=== PATIENT | female | born 1985 | race Caucasian/White ===

== ENCOUNTER 2021-11-10 09:00 | Emergency (ER) | payer SELFPAY ==
[~2021-11-10] VITALS: Ht 167.6 cm; Wt 82.0 kg
[2021-11-10] MEDS ORDERED: IBUPROFEN 400MG TABLET PO ONE (09:45)
[2021-11-10 10:13] VITALS: BP 130/79
== END 2021-11-10 12:10 | disposition home or self-care (01) ==
LOC: ER 09:24
DX: M54.50 Low back pain, unspecified (principal); R07.89 Other chest pain; V43.62XA Car passenger injured in collision with other type car in traffic accident, initial encounter; Y93.89 Activity, other specified; Y92.411 Interstate highway as the place of occurrence of the external cause
CPT/HCPCS: 71045; 76705; 81025; 99284